=== PATIENT | male | born 1975 | race Hispanic/Latino ===

== ENCOUNTER 2017-08-30 10:33 | Emergency (ER) | payer OTHER, MEDICAID ==
[2017-08-30] MEDS: CYCLOBENZAPRINE 10 MG TAB PO (12:00)
[2017-08-30] MEDS: MORPHINE 10 MG/ML 1ML VIAL IM (12:00)
== END 2017-08-30 13:32 | disposition home or self-care (01) ==
LOC: M ED 10:33
DX: M54.5 Low back pain (principal); F17.200 Nicotine dependence, unspecified, uncomplicated
CPT/HCPCS: 96372

== ENCOUNTER → 2017-09-22 | Outpatient (REF) | payer OTHER ==
[2017-09-22 11:34] LABS: BASO % 0.2 % (0.0-1.0); EOS # 0.1 10^3/uL (0.0-0.50); EOS % 2.2 % (0.0-3.0); HEMATOCRIT 46.5 % (42.0-52.0); HEMOGLOBIN 15.5 g/dl (14.0-18.0); IMMATURE GRANULOCYTE % 0.2 % (0-0); LYMPH # 2.2 10^3/uL (1.5-4.5); LYMPH % 37.1 % (24.0-44.0); MEAN CORPUSCULAR HEMOGLOBIN 29.8 pg (27.0-33.0); MEAN CORPUSCULAR HGB CONC 33.3 g/dl (32.0-36.5); MEAN CORPUSCULAR VOLUME 89.3 fl (80.0-96.0); MONO # 0.5 10^3/uL (0.0-0.8); MONO % 8.3 % (0.0-5.0); NEUTROPHILS # 3.1 10^3/uL (1.8-7.7); PLATELET COUNT, AUTOMATED 180 10^3/uL (150-450); RED BLOOD COUNT 5.21 10^6/uL (4.30-6.10); RED CELL DISTRIBUTION WIDTH 13.2 % (11.5-14.5); WHITE BLOOD COUNT 5.9 10^3/uL (4.0-10.0)
[2017-09-22 11:56] LABS: TOTAL 25(OH) VITAMIN D 10.1 NG/ML (30.0-100.0)
[2017-09-22 12:09] LABS: ALBUMIN 3.9 GM/DL (3.2-5.2); ALKALINE PHOSPHATASE 67 U/L (45-117); ALT/SGPT 22 U/L (12-78); ANION GAP 6 MEQ/L (8-16); AST/SGOT 10 U/L (7-37); BILIRUBIN,TOTAL 0.2 MG/DL (0.2-1.0); BLOOD UREA NITROGEN 18 MG/DL (7-18); CALCIUM LEVEL 8.2 MG/DL (8.5-10.1); CARBON DIOXIDE LEVEL 28 MEQ/L (21-32); CHLORIDE LEVEL 109 MEQ/L (98-107); CHOLESTEROL LEVEL 124 MG/DL (<200); CHOLESTEROL RISK RATIO 3.542 (<5); CREATININE FOR GFR 0.73 MG/DL (0.70-1.30); GLOMERULAR FILTRATION RATE > 60.0 (>60); GLUCOSE, FASTING 101 MG/DL (70-100); HDL CHOLESTEROL 35 MG/DL (>40); LDL CHOLESTEROL 68.2 MG/DL (<100); NON-HDL-C 89 MG/DL; POTASSIUM SERUM 3.8 MEQ/L (3.5-5.1); SODIUM LEVEL 143 MEQ/L (136-145); TOTAL PROTEIN 6.9 GM/DL (6.4-8.2); TRIGLYCERIDES LEVEL 104 MG/DL (<150)
== END ==
LOC: M SFHCADAM 07:57
DX: M54.5 Low back pain (principal); E66.01 Morbid (severe) obesity due to excess calories; R03.0 Elevated blood-pressure reading, without diagnosis of hypertension
CPT/HCPCS: 84443

== ENCOUNTER → 2017-10-12 | Outpatient (CLI) | payer OTHER ==
[~2017-10-12] MED LIST: SIMETHICONE 40MG/0.6ML DROPS 30ML As Ordered
== END ==
LOC: M RAD 11:22
DX: N50.3 Cyst of epididymis (principal)
CPT/HCPCS: 76870

== ENCOUNTER 2017-10-25 18:33 | Emergency (ER) | payer OTHER ==
[2017-10-25] MEDS: METOCLOPRAMIDE INJ 10MG/2ML VIAL (J2765) IV (20:12)
[2017-10-25] MEDS: ASPIRIN 81 MG CHEW TABLET PO (20:12)
[2017-10-25 20:52] LABS: INR 0.93; PROTHROMBIN TIME 12.6 SECONDS (12.4-14.5)
[2017-10-25 21:01] LABS: BASO % 0.1 % (0.0-1.0); EOS # 0.1 10^3/uL (0.0-0.50); EOS % 0.9 % (0.0-3.0); HEMATOCRIT 44.9 % (42.0-52.0); HEMOGLOBIN 15.6 g/dl (14.0-18.0); IMMATURE GRANULOCYTE % 0.2 % (0-3.0); LYMPH # 1.9 10^3/uL (1.5-4.5); MEAN CORPUSCULAR HEMOGLOBIN 29.7 pg (27.0-33.0); MEAN CORPUSCULAR HGB CONC 34.7 g/dl (32.0-36.5); MEAN CORPUSCULAR VOLUME 85.4 fl (80.0-96.0); MONO # 0.7 10^3/uL (0.0-0.8); MONO % 7.9 % (0.0-5.0); NEUTROPHILS # 6.3 10^3/uL (1.8-7.7); NEUTROPHILS % 69.9 % (36.0-66.0); PLATELET COUNT, AUTOMATED 183 10^3/uL (150-450); RED BLOOD COUNT 5.26 10^6/uL (4.30-6.10); RED CELL DISTRIBUTION WIDTH 12.6 % (11.5-14.5)
[2017-10-25 21:13] LABS: ALBUMIN/GLOBULIN RATIO 1.05 (1.00-1.93); ALKALINE PHOSPHATASE 68 U/L (45-117); ALT/SGPT 26 U/L (12-78); ANION GAP 6 MEQ/L (8-16); AST/SGOT 14 U/L (7-37); BILIRUBIN,DIRECT 0.1 MG/DL (0.0-0.2); BILIRUBIN,TOTAL 0.3 MG/DL (0.2-1.0); BLOOD UREA NITROGEN 12 MG/DL (7-18); CALCIUM LEVEL 9.2 MG/DL (8.5-10.1); CARBON DIOXIDE LEVEL 31 MEQ/L (21-32); CHLORIDE LEVEL 101 MEQ/L (98-107); CPK CREATINE PHOSPHOKINASE 176 U/L (39-308); CREATININE FOR GFR 0.77 MG/DL (0.70-1.30); GLOMERULAR FILTRATION RATE > 60.0 (>60); GLUCOSE, FASTING 103 MG/DL (70-100); LIPASE 73 U/L (73-393); MB/CK RELATIVE INDEX 0.56 (< OR =4); POTASSIUM SERUM 3.6 MEQ/L (3.5-5.1); SODIUM LEVEL 138 MEQ/L (136-145); TOTAL PROTEIN 7.8 GM/DL (6.4-8.2); TROPONIN I < 0.02 NG/ML (< 0.10)
[2017-10-25 22:06] LABS: CPK CREATINE PHOSPHOKINASE 170 U/L (39-308); MB/CK RELATIVE INDEX 0.58 (< OR =4); TROPONIN I < 0.02 NG/ML (< 0.10)
== END 2017-10-25 22:30 | disposition home or self-care (01) ==
LOC: M ED 18:33
DX: R07.89 Other chest pain (principal); R51 Headache; I10 Essential (primary) hypertension; I25.10 Atherosclerotic heart disease of native coronary artery without angina pectoris; Z82.49 Family history of ischemic heart disease and other diseases of the circulatory system; Z79.899 Other long term (current) drug therapy; F17.210 Nicotine dependence, cigarettes, uncomplicated
CPT/HCPCS: J2765

== ENCOUNTER → 2017-12-16 | Outpatient (CLI) | payer OTHER | LOC: M RAD 09:27 | DX: M51.36 Other intervertebral disc degeneration, lumbar region (principal); M19.071 Primary osteoarthritis, right ankle and foot | CPT/HCPCS: 73700 ==

== ENCOUNTER → 2018-03-06 | Outpatient (REF) | payer OTHER ==
[2018-03-06 13:17] LABS: TOTAL 25(OH) VITAMIN D 24.5 NG/ML (30.0-100.0)
== END ==
LOC: M SFHCADAM 08:08
DX: E55.9 Vitamin D deficiency, unspecified (principal)
CPT/HCPCS: 82306

== ENCOUNTER → 2018-03-07 | Outpatient (CLI) | payer OTHER | LOC: M RAD 08:23 | DX: M54.5 Low back pain (principal) | CPT/HCPCS: 71046 ==

== ENCOUNTER → 2018-03-09 | Outpatient (CLI) | payer OTHER | LOC: M PAIN 14:45 | DX: G89.29 Other chronic pain (principal); M51.16 Intervertebral disc disorders with radiculopathy, lumbar region; E66.01 Morbid (severe) obesity due to excess calories; E55.9 Vitamin D deficiency, unspecified; I10 Essential (primary) hypertension; M19.90 Unspecified osteoarthritis, unspecified site; F17.210 Nicotine dependence, cigarettes, uncomplicated; R06.83 Snoring; Z79.891 Long term (current) use of opiate analgesic; Z79.899 Other long term (current) drug therapy | CPT/HCPCS: G0463 ==

== ENCOUNTER → 2018-04-04 | Outpatient (CLI) | payer OTHER ==
[~2018-04-04] MED LIST changes: +ISOVUE-M 300 61% 15ML VIAL (Q9967) As Ordered; +LIDOCAINE 1% SDV INJ 30 ML VIAL As Ordered; -SIMETHICONE 40MG/0.6ML DROPS 30ML As Ordered; +diazePAM 5 MG TAB As Ordered; +methylPREDNISolone SUSP 40 MG/ML (DEPO-medrol) VIAL (J1030) As Ordered; +oxyCODONE 5MG TAB As Ordered
== END ==
LOC: M PAIN 09:15
DX: G89.29 Other chronic pain (principal); M51.16 Intervertebral disc disorders with radiculopathy, lumbar region; I10 Essential (primary) hypertension; R06.3 Periodic breathing; M19.90 Unspecified osteoarthritis, unspecified site; E55.9 Vitamin D deficiency, unspecified; Z79.899 Other long term (current) drug therapy
CPT/HCPCS: J1030

== ENCOUNTER → 2018-05-11 | Outpatient (CLI) | payer OTHER | LOC: M PAIN 14:00 | DX: Z53.29 Procedure and treatment not carried out because of patient's decision for other reasons (principal) ==

== ENCOUNTER → 2018-05-31 | Outpatient (CLI) | payer OTHER | LOC: M PAIN 10:45 | DX: M51.16 Intervertebral disc disorders with radiculopathy, lumbar region (principal); E66.01 Morbid (severe) obesity due to excess calories; E55.9 Vitamin D deficiency, unspecified; I10 Essential (primary) hypertension; R06.83 Snoring; M19.90 Unspecified osteoarthritis, unspecified site; F17.210 Nicotine dependence, cigarettes, uncomplicated; Z79.891 Long term (current) use of opiate analgesic; Z79.899 Other long term (current) drug therapy; Z68.36 Body mass index [BMI] 36.0-36.9, adult | CPT/HCPCS: J1030 ==

== ENCOUNTER → 2018-06-08 | Outpatient (CLI) | payer OTHER | LOC: M ADAMS 16:12 | DX: M25.78 Osteophyte, vertebrae (principal); M79.641 Pain in right hand | CPT/HCPCS: 72050 ==

== ENCOUNTER → 2018-06-19 | Outpatient (CLI) | payer OTHER | LOC: M PAIN 09:00 | DX: M53.3 Sacrococcygeal disorders, not elsewhere classified (principal); M51.26 Other intervertebral disc displacement, lumbar region; E66.01 Morbid (severe) obesity due to excess calories; Z68.37 Body mass index [BMI] 37.0-37.9, adult; M25.551 Pain in right hip; E55.9 Vitamin D deficiency, unspecified; I10 Essential (primary) hypertension; R06.83 Snoring; M19.90 Unspecified osteoarthritis, unspecified site; F17.210 Nicotine dependence, cigarettes, uncomplicated; Z79.899 Other long term (current) drug therapy | CPT/HCPCS: G0463 ==

== ENCOUNTER → 2018-07-31 | Outpatient (CLI) | payer OTHER | LOC: M SLEEP HO 10:52 | DX: G47.33 Obstructive sleep apnea (adult) (pediatric) (principal) | CPT/HCPCS: G0399 ==

== ENCOUNTER → 2018-08-10 | Outpatient (CLI) | payer OTHER ==
[~2018-08-10] MED LIST changes: +BUPIVACAINE HCL 0.25% 30 ML VIAL As Ordered ONE; +HYDR12.55 PO; -ISOVUE-M 300 61% 15ML VIAL (Q9967) As Ordered; +ISOVUE-M 300 61% 15ML VIAL (Q9967) As Ordered ONE; -LIDOCAINE 1% SDV INJ 30 ML VIAL As Ordered; +LIDOCAINE 1% SDV INJ 30 ML VIAL As Ordered ONE; +ROBA500T PO; +TRIAMCINOLONE ACETONIDE SUSP 40 MG/ML VIAL (J3301) As Ordered ONE; -diazePAM 5 MG TAB As Ordered; +diazePAM 5 MG TAB As Ordered ONE; -methylPREDNISolone SUSP 40 MG/ML (DEPO-medrol) VIAL (J1030) As Ordered; -oxyCODONE 5MG TAB As Ordered; +oxyCODONE 5MG TAB As Ordered ONE
--- NOTE | 2018-08-10 14:27 | REP ---
SI joint series: Three views. History: Bilateral SI joint injection for pain. 35 seconds of fluoroscopy time is reported. Findings: A sequence of three last image hold fluoroscopically obtained spot radiographs of the SI joints document needle position and contrast injection associated with SI joint injection procedure. Electronically Signed by Primitivo Camargo MD 08/10/2018 07:47 P
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
== END ==
LOC: M PAIN 11:00
PROVIDERS: ATTEND Anesthesiology
DX: M46.1 Sacroiliitis, not elsewhere classified (principal); E66.01 Morbid (severe) obesity due to excess calories; Z68.38 Body mass index [BMI] 38.0-38.9, adult; E55.9 Vitamin D deficiency, unspecified; I10 Essential (primary) hypertension; R06.83 Snoring; F17.210 Nicotine dependence, cigarettes, uncomplicated; Z79.899 Other long term (current) drug therapy
CPT/HCPCS: 27096; J3301; Q9967

== ENCOUNTER 2019-05-03 23:58 | Emergency (ER) | payer OTHER, SELFPAY ==
[~2019-05-03 23:58] MED LIST changes: -BUPIVACAINE HCL 0.25% 30 ML VIAL As Ordered ONE; -ISOVUE-M 300 61% 15ML VIAL (Q9967) As Ordered ONE; -LIDOCAINE 1% SDV INJ 30 ML VIAL As Ordered ONE; -TRIAMCINOLONE ACETONIDE SUSP 40 MG/ML VIAL (J3301) As Ordered ONE; -diazePAM 5 MG TAB As Ordered ONE; -oxyCODONE 5MG TAB As Ordered ONE
[2019-05-04 00:30] LABS: HEMATOCRIT 49.1 % (42.0-52.0); HEMOGLOBIN 16.5 g/dl (13.5-17.5); MEAN CORPUSCULAR HEMOGLOBIN 30.1 pg (27.0-33.0); MEAN CORPUSCULAR HGB CONC 33.6 g/dl (32.0-36.5); MEAN CORPUSCULAR VOLUME 89.6 fl (80.0-96.0); PLATELET COUNT, AUTOMATED 175 10^3/uL (150-450); RED BLOOD COUNT 5.48 10^6/uL (4.30-6.10); WHITE BLOOD COUNT 12.4 10^3/uL (4.0-10.0)
[2019-05-04 00:42] LABS: PROTHROMBIN TIME 12.9 SECONDS (11.8-14.0)
[2019-05-04 00:45] LABS: CK-MB VALUE MASS 1.9 NG/ML (<3.6); CPK CREATINE PHOSPHOKINASE 252 U/L (39-308); MB/CK RELATIVE INDEX 0.75 (< OR =4); TROPONIN I < 0.02 NG/ML (< 0.10)
[2019-05-04 00:56] LABS: ALBUMIN 4.3 GM/DL (3.2-5.2); ALT/SGPT 20 U/L (12-78); BILIRUBIN,TOTAL 0.6 MG/DL (0.2-1.0); BLOOD UREA NITROGEN 10 MG/DL (7-18); CALCIUM LEVEL 9.3 MG/DL (8.5-10.1); CARBON DIOXIDE LEVEL 24 MEQ/L (21-32); CHLORIDE LEVEL 111 MEQ/L (98-107); GLOMERULAR FILTRATION RATE > 60.0 (>60); GLUCOSE, FASTING 132 MG/DL (70-100); POTASSIUM SERUM 3.6 MEQ/L (3.5-5.1); SODIUM LEVEL 142 MEQ/L (136-145); TOTAL PROTEIN 7.5 GM/DL (6.4-8.2)
[2019-05-04 01:42] LABS: LYMPHOCYTES 10 % (16-44); MONOCYTES 8 % (0-5); NEUTROPHILS 82 % (28-66)
[2019-05-04 01:43] LABS: PLATELET ESTIMATE NORMAL (NORMAL)
--- NOTE | 2019-05-04 02:03 | REPVR ---
EXAM: CT Head Without Contrast EXAM DATE/TIME: 05/04/2019 1:14 AM CLINICAL HISTORY: 44 years old, male; Altered mental status/memory loss; Confusion or disorientation; Additional info: AMS TECHNIQUE: Imaging protocol: Computed tomography of the head without contrast. Radiation optimization: All CT scans at this facility use at least one of these dose optimization techniques: automated exposure control; mA and/or kV adjustment per patient size (includes targeted exams where dose is matched to clinical indication); or iterative reconstruction. COMPARISON: CT Head without contrast 10/25/2017 8:16 PM FINDINGS: There are no intra-or extra-axial hemorrhages or fluid collections. There is no mass effect or midline shift. Ventricles nondilated for age. There are no focal parenchymal abnormalities. Relatively uniform attenuation of major intracranial arteries. No calvarial fractures. IMPRESSION: No acute intracranial process. No intracranial hemorrhage. Electronically signed by: Alexis Oneil On 05/04/2019 02:02:34 AM
[2019-05-04 02:18] LABS: ACETAMINOPHEN LEVEL < 2.0 UG/ML (10.0-30.0); ETHYL ALCOHOL (ETHANOL) < 0.003 % (0.000-0.010); SALICYLATE LEVEL 3.1 MG/DL (5.0-30.0)
[2019-05-04 02:24] LABS: AMPHETAMINES LEVEL URINE NEGATIVE (NEGATIVE); BARBITURATES URINE NEGATIVE (NEGATIVE); BENZODIAZEPINES URINE NEGATIVE (NEGATIVE); CANNABINOIDS URINE POSITIVE (NEGATIVE); COCAINE METABOLITE URINE NEGATIVE (NEGATIVE); METHADONE URINE NEGATIVE (NEGATIVE); OPIATES URINE NEGATIVE (NEGATIVE); PHENCYCLIDINE URINE NEGATIVE (NEGATIVE)
[2019-05-04 06:02] VITALS: BP 124/77
[2019-05-04] MEDS ORDERED: LISI-538 PO (06:17)
[2019-05-04] MEDS ORDERED: DILT120C78 PO (06:17)
--- NOTE | 2019-05-04 07:21 | ECGEPIP ---
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
--- NOTE | 2019-05-04 07:57 | REP ---
Clinical: Altered mental status and hypoxia . Comparison: 03/07/2018 . Findings: The mediastinum and cardiac silhouette are stable and within normal limits for portable technique. The lung saxena are clear without acute consolidation, effusion, or pneumothorax. Skeletal structures are intact. Impression: No acute cardiopulmonary process appreciated. Electronically Signed by Marlon Dennison MD 05/04/2019 07:49 A
== END 2019-05-04 06:22 | disposition home or self-care (01) ==
LOC: M ED 23:58
DX: R55 Syncope and collapse (principal); R00.0 Tachycardia, unspecified; I10 Essential (primary) hypertension; M54.9 Dorsalgia, unspecified; Z79.899 Other long term (current) drug therapy
CPT/HCPCS: 36600; 70450; 71045; 80053; 80307; 82550; 82553; 82803; 83605; 84484; 85025; 85610; 93005; 93041; 99285; G0480